=== PATIENT | male | born 1975 | race Caucasian/White ===

== ENCOUNTER 2022-11-03 06:15 | Emergency (ER) | payer MEDICAID ==
[~2022-11-03] VITALS: Ht 165.1 cm; Wt 78.0 kg
[2022-11-03 08:30] VITALS: BP 118/73
== END 2022-11-03 08:53 | disposition home or self-care (01) ==
LOC: ER 06:15
DX: R13.10 Dysphagia, unspecified (principal)
CPT/HCPCS: 70490; 71045; 99284